=== PATIENT | male | born 1940 | race Caucasian/White ===

== ENCOUNTER 2024-10-25 17:54 | Emergency (ER) | payer MEDICARE ==
[~2024-10-25] VITALS: Ht 175.3 cm; Wt 67.6 kg
[2024-10-25] MEDS ORDERED: CVSTAB PO (21:59)
[2024-10-25] MEDS ORDERED: GNP1000T11 PO (21:59)
[2024-10-25] MEDS ORDERED: B-12100021 PO (21:59)
[2024-10-25] MEDS ORDERED: ECOT81TA5 PO (21:59)
[2024-10-25 22:10] LABS: KETONE, URINE AUTO RFX TRACE mg/dL (NEGATIVE); LEUKOCYTE ESTERASE UR AUTO RFX NEGATIVE (NEGATIVE); MUCUS, URINE RFX SMALL (NEGATIVE); NITRITE, URINE AUTO RFX NEGATIVE (NEGATIVE); RBC, URINE AUTO RFX 1 /HPF (0-3); SQUAM EPITHELIAL CELL UR AURFX 0 /HPF (0-6); WBC, URINE AUTO RFX 1 /HPF (0-3)
[2024-10-25 22:25] LABS: BASO # 0.0 10^3/uL (0.0-0.2); BASO % 0.5 % (0.0-1.0); EOS # 0.0 10^3/uL (0.0-0.5); EOS % 0.0 % (0.0-3.0); LYMPH # 0.4 10^3/uL (1.5-5.0); LYMPH % 18.1 % (24.0-44.0); MONO # 0.2 10^3/uL (0.0-0.8); MONO % 9.0 % (2.0-8.0); NEUTROPHILS # 1.6 10^3/uL (1.5-8.5); NEUTROPHILS % 71.5 % (36.0-66.0); PLATELET COUNT, AUTOMATED 101 10^3/uL (150-450)
[2024-10-25 22:42] LABS: ALT/SGPT 18.0 U/L (7.0-40); AST/SGOT 32.0 U/L (<34); CALCIUM LEVEL 8.9 MG/DL (8.3-10.6); CARBON DIOXIDE LEVEL 27.0 MMOL/L (20-31); CHLORIDE LEVEL 98.0 MMOL/L (98-107); CREATININE FOR GFR 1.47 MG/DL (0.70-1.30); GLOMERULAR FILTRATION RATE 46.7 (>35); POTASSIUM SERUM 4.1 MMOL/L (3.5-5.1); SODIUM LEVEL 135.0 MMOL/L (136-145)
[2024-10-26] MEDS ORDERED: DOXY-441 PO (00:50)
[2024-10-26] MEDS: DOXYCYCLINE HYCLATE 100 MG TABLET PO ONE (01:00)
[2024-10-26 01:13] VITALS: BP 144/70; TEMP 98.1; O2SAT 96
== END 2024-10-26 01:16 | disposition home or self-care (01) ==
LOC: M ED 17:54
DX: R50.9 Fever, unspecified (principal); W57.XXXA Bitten or stung by nonvenomous insect and other nonvenomous arthropods, initial encounter; D72.819 Decreased white blood cell count, unspecified; D69.6 Thrombocytopenia, unspecified; Z79.1 Long term (current) use of non-steroidal anti-inflammatories (NSAID); Z79.2 Long term (current) use of antibiotics; Z79.899 Other long term (current) drug therapy